=== PATIENT | female | born 1940 | race Caucasian/White ===

== ENCOUNTER 2018-09-06 09:45 | Outpatient (CLI) ==
[2018-09-06 15:20] VITALS: TEMP 98.5
[2018-09-06 16:25] VITALS: BP 119/66
== END 2018-09-06 09:46 | disposition home or self-care (01) ==
LOC: LAB 09:45 → OPMED 09:46
PROVIDERS: ATTEND Registered Nurse
DX: D64.9 Anemia, unspecified (principal)
CPT/HCPCS: 36415; 36430; 85014; 85018; 85027; 86850; 86900; 86922